=== PATIENT | female | born 1975 | race Caucasian/White ===

== ENCOUNTER → 2019-08-24 14:58 | Outpatient (BNVA) | payer MEDICAID, SELFPAY | PROVIDERS: Family Provider Nurse Practitioner; PCP Nurse Practitioner; Visit Provider Anesthesiology | DX: M47.817 Spondylosis without myelopathy or radiculopathy, lumbosacral region (principal); M79.651 Pain in right thigh; M79.652 Pain in left thigh; G43.709 Chronic migraine without aura, not intractable, without status migrainosus; Z79.891 Long term (current) use of opiate analgesic | CPT/HCPCS: 99214 ==

== ENCOUNTER → 2019-10-18 12:53 | Outpatient (BNVA) | payer MEDICAID, SELFPAY | PROVIDERS: Family Provider Nurse Practitioner; PCP Nurse Practitioner; Visit Provider Nurse Practitioner | DX: G89.29 Other chronic pain (principal); M47.817 Spondylosis without myelopathy or radiculopathy, lumbosacral region; M79.652 Pain in left thigh; Z79.891 Long term (current) use of opiate analgesic | CPT/HCPCS: 99214 ==

== ENCOUNTER → 2020-01-09 14:56 | Outpatient (BNVA) | payer MEDICAID, SELFPAY | PROVIDERS: Family Provider Nurse Practitioner; PCP Nurse Practitioner; Visit Provider Nurse Practitioner | DX: G89.29 Other chronic pain (principal); M47.817 Spondylosis without myelopathy or radiculopathy, lumbosacral region; M54.42 Lumbago with sciatica, left side; M54.9 Dorsalgia, unspecified; Z79.891 Long term (current) use of opiate analgesic | CPT/HCPCS: 99213; 99214 ==

== ENCOUNTER → 2020-03-26 08:07 | Outpatient (BNVA) | payer MEDICAID, SELFPAY | PROVIDERS: Family Provider Nurse Practitioner; PCP Nurse Practitioner; Visit Provider Anesthesiology | DX: G89.29 Other chronic pain (principal); M54.42 Lumbago with sciatica, left side; M47.817 Spondylosis without myelopathy or radiculopathy, lumbosacral region; M54.9 Dorsalgia, unspecified; Z79.891 Long term (current) use of opiate analgesic | CPT/HCPCS: 99213; 99214 ==

== ENCOUNTER → 2020-05-22 13:21 | Outpatient (BNVA) | payer MEDICAID, SELFPAY | PROVIDERS: Family Provider Nurse Practitioner; PCP Nurse Practitioner; Visit Provider Anesthesiology | DX: G89.29 Other chronic pain (principal); M47.817 Spondylosis without myelopathy or radiculopathy, lumbosacral region; M54.9 Dorsalgia, unspecified; Z79.891 Long term (current) use of opiate analgesic | CPT/HCPCS: 99213; 99214 ==

== ENCOUNTER → 2020-07-24 10:43 | Outpatient (BNVA) | payer MEDICAID, SELFPAY | PROVIDERS: Family Provider Nurse Practitioner; PCP Nurse Practitioner; Visit Provider Nurse Practitioner | DX: G89.29 Other chronic pain (principal); M54.42 Lumbago with sciatica, left side; M47.817 Spondylosis without myelopathy or radiculopathy, lumbosacral region; M54.9 Dorsalgia, unspecified; G43.709 Chronic migraine without aura, not intractable, without status migrainosus; Z79.891 Long term (current) use of opiate analgesic | CPT/HCPCS: 99214 ==

== ENCOUNTER → 2020-09-11 13:51 | Outpatient (BNVA) | payer MEDICAID, SELFPAY | PROVIDERS: Family Provider Nurse Practitioner; PCP Nurse Practitioner; Visit Provider Nurse Practitioner | DX: G89.29 Other chronic pain (principal); M47.817 Spondylosis without myelopathy or radiculopathy, lumbosacral region; G43.709 Chronic migraine without aura, not intractable, without status migrainosus; M54.9 Dorsalgia, unspecified; Z79.891 Long term (current) use of opiate analgesic | CPT/HCPCS: 99214 ==

== ENCOUNTER 2020-10-08 17:32 | Outpatient (CLI) | payer MEDICAID, SELFPAY ==
--- NOTE | 2020-10-08 17:30 | MR_ITS ---
WS: [id number] MRI LUMBAR SPINE NONCONTRAST HISTORY: M47.817 - Spondylosis without myelopathy or radiculopathy, lumbosacral region COMPARISON: 12/06/2013 TECHNIQUE: Sagittal and axial multisequence imaging is submitted. Normal lumbar alignment with no compression fractures or marrow edema. Mild disc desiccation at L3-4, L4-5 and L5-S1. No significant narrowing. No fractures or marrow edema . Conus terminates normally at L1-2 disc level. L1-L2: Mild bilateral facet joint arthritis and ligamentum flavum hypertrophy. No disc protrusions or significant stenosis. L2-L3: Mild annular disc bulge with mild ligamentum flavum and facet arthritis. Foramina are being sl ightly narrowed bilaterally. L3-L4: Mild annular disc bulging with a central broad-based protrusion. Asymmetric ligamentum flavum hypertrophy, greatest on the RIGHT. Mild central, bilateral lateral recess and RIGHT foraminal stenos is. Moderate to severe LEFT foraminal stenosis with near complete effacement of fat. L4-L5: Mild annular disc bulging and osteophytic ridging. Mild bilateral facet joint arthritis and li gamentum flavum hypertrophy. Mild central stenosis. Moderate to severe RIGHT foraminal and mild LEFT foraminal stenosis. L5-S1: Mild annular disc bulging with moderate facet and ligamentum flavum hypertrophy. Mild bilatera l foraminal stenosis, LEFT greater than RIGHT. Very mild contact on the LEFT S1 nerve root but no dis placement. Very similar to the prior study. Paravertebral soft tissues are normal. MR/MR lumbar spine wo con* [id number] IMPRESSION: 1. Mild progression of degenerative changes of the lumbar spine and foraminal stenoses since 12/06/2013. 2. Moderate to severe LEFT foraminal stenosis at L3-4 with mild central and bi lateral lateral recess stenosis. 3. Moderate to severe RIGHT foraminal stenosis at L4-5 with mild central steno sis. 4. Mild bilateral foraminal stenosis at L5-S1 with slight contact and no displ acement on the LEFT S1 nerve root.
== END 2020-10-08 17:33 | disposition home or self-care (01) ==
LOC: RADSHAW 17:34
PROVIDERS: PCP Nurse Practitioner; Visit Provider Nurse Practitioner
DX: M47.817 Spondylosis without myelopathy or radiculopathy, lumbosacral region (principal); M48.07 Spinal stenosis, lumbosacral region; M48.061 Spinal stenosis, lumbar region without neurogenic claudication
CPT/HCPCS: 72148

== ENCOUNTER → 2020-10-17 08:25 | Outpatient (BNVA) | payer MEDICAID, SELFPAY | PROVIDERS: PCP Nurse Practitioner; Visit Provider Anesthesiology | DX: G89.29 Other chronic pain (principal); M47.817 Spondylosis without myelopathy or radiculopathy, lumbosacral region; M54.9 Dorsalgia, unspecified; Z79.891 Long term (current) use of opiate analgesic | CPT/HCPCS: 99213 ==

== ENCOUNTER → 2020-12-19 09:55 | Outpatient (BNVA) | payer MEDICAID, SELFPAY | PROVIDERS: PCP Nurse Practitioner; Visit Provider Nurse Practitioner | DX: G89.29 Other chronic pain (principal); M47.817 Spondylosis without myelopathy or radiculopathy, lumbosacral region; M54.9 Dorsalgia, unspecified; G43.709 Chronic migraine without aura, not intractable, without status migrainosus; Z79.891 Long term (current) use of opiate analgesic | CPT/HCPCS: 99213 ==

== ENCOUNTER → 2021-02-18 12:51 | Outpatient (BNVA) | payer MEDICAID, SELFPAY | PROVIDERS: PCP Nurse Practitioner; Visit Provider Nurse Practitioner | DX: G89.29 Other chronic pain (principal); M47.817 Spondylosis without myelopathy or radiculopathy, lumbosacral region; M54.9 Dorsalgia, unspecified; G43.709 Chronic migraine without aura, not intractable, without status migrainosus; E66.01 Morbid (severe) obesity due to excess calories; Z79.891 Long term (current) use of opiate analgesic | CPT/HCPCS: 99214 ==

== ENCOUNTER → 2021-03-19 10:00 | Outpatient (BNVA) | payer MEDICAID, SELFPAY | PROVIDERS: PCP Nurse Practitioner; Visit Provider Nurse Practitioner | DX: G89.29 Other chronic pain (principal); M47.817 Spondylosis without myelopathy or radiculopathy, lumbosacral region; G43.709 Chronic migraine without aura, not intractable, without status migrainosus; E66.01 Morbid (severe) obesity due to excess calories; Z79.891 Long term (current) use of opiate analgesic | CPT/HCPCS: 99214 ==

== ENCOUNTER → 2021-05-02 12:09 | Outpatient (BNVA) | payer MEDICAID, SELFPAY | PROVIDERS: PCP Nurse Practitioner; Visit Provider Anesthesiology Pain Medicine | DX: G89.29 Other chronic pain (principal); M53.3 Sacrococcygeal disorders, not elsewhere classified; Z79.891 Long term (current) use of opiate analgesic | CPT/HCPCS: G0260; J1030; J3490 ==

== ENCOUNTER → 2021-05-21 10:21 | Outpatient (BNVA) | payer MEDICAID, SELFPAY | PROVIDERS: PCP Nurse Practitioner; Visit Provider Anesthesiology | DX: G89.29 Other chronic pain (principal); M47.817 Spondylosis without myelopathy or radiculopathy, lumbosacral region; G43.709 Chronic migraine without aura, not intractable, without status migrainosus; E66.01 Morbid (severe) obesity due to excess calories; I50.32 Chronic diastolic (congestive) heart failure; I11.0 Hypertensive heart disease with heart failure; Z79.891 Long term (current) use of opiate analgesic | CPT/HCPCS: 99213 ==

== ENCOUNTER 2021-06-09 19:18 | Emergency (ER) | payer MEDICAID, SELFPAY ==
--- NOTE | 2021-06-09 19:20 | XRR_ITS ---
PROCEDURE INFORMATION: Exam: XR Chest Exam date and time: 06/09/2021 7:20 PM Age: 45 years old Clinical indication: Pain; Chest pressure; Additional info: Chest pain TECHNIQUE: Imaging protocol: XR of the chest. Views: 1 view. COMPARISON: CR Chest 2 views* [id number] 08/30/2016 11:41 AM FINDINGS: Lungs: Unremarkable. No consolidation. Pleural spaces: Unremarkable. No pleural effusion. No pneumothorax. Heart/Mediastinum: Unremarkable. No cardiomegaly. Bones/joints: No acute abnormality. XR/XR chest 1V portable [id number] IMPRESSION: No acute findings. Radiation Dose CTDIVOL = (mGy): DLP = (mGy-cm)
--- NOTE | 2021-06-09 19:20 | ECG_ITS ---
[facility] Test Date: 2021-06-09 Pat Name: Darwin Stanford Department: Room: Gender: Female Electrical Superintendent: : 1975 Requested By: Randa Calloway Order Number: [id number] Shannan MD: KIN RODRIGUEZ Measurements Intervals [place] Rate: 79 P: 51 WA: 152 QRS: 23 QRSD: 78 T: 45 QT: 362 QTc: 417 Interpretive Statements SINUS RHYTHM Compared to ECG 08/30/2016 13:08:26 T-wave abnormality no longer present Electronically Signed On 06-09-2021 21:54:04 CDT by KIN RODRIGUEZ [id number]
[2021-06-09 19:26] VITALS: BP 152/93; PULSE 83; RESP 22; TEMP 37.6; O2SAT 98; BMI 37.2
== END 2021-06-09 22:38 | disposition left against medical advice (07) ==
PROVIDERS: Emergency Provider Family Medicine; PCP Nurse Practitioner
DX: Z53.21 Procedure and treatment not carried out due to patient leaving prior to being seen by health care provider (principal)
CPT/HCPCS: 71045; 93005

== ENCOUNTER 2021-06-25 10:10 | Outpatient (CLI) | payer MEDICAID, SELFPAY ==
[2021-06-25 10:25] VITALS: BMI 37.2
--- NOTE | 2021-06-25 10:26 | ECG_ITS ---
[facility] Test Date: 2021-06-25 Pat Name: Darwin Stanford Department: Room: Gender: Female Deployment Specialist: Shani Syn : 1975 Requested By: Sushma Dubose Order Number: [id number] Shannan MD: Sushma Dubose M.D. Interpretive Statements NAME OF STUDY: LEXISCAN SESTAMIBI STRESS TEST INDICATION: Chest Pain, PROCEDURE: At the baseline, the EKG revealed normal sinus rhythm with some nonspecific T wave changes in the inferolateral leads. The baseline blood pressure was 150/87 mm Hg with a heart rate of 90 beats/min. Lexiscan was infused over a period of 20 seconds. A total of 0.4 milligrams of Lexiscan was infused. The stress phase was continued for a total of 5 minutes. Heart rate at the end of the stress phase was 101 with a blood pressure 144/82. The EKG at the peak infusion revealed no significant changes. Sestamibi was injected 20 seconds after the Lexiscan infusion. Blood pressure at the end of the recovery phase was 152/82 with a heart rate of 100 per minute. CONCLUSION: 1. No significant EKG changes with the LexiScan infusion 2. No LexiScan induced chest pain or cardiac arrhythmia 3. Normal blood pressure and heart rate response 4. Sestamibi/sestamibi perfusion scan pending; see separate report. Electronically Signed On 06-29-2021 20:47:23 CLIENT SERVICE MANAGER by Sushma Dubose M.D. [id number]
--- NOTE | 2021-06-25 10:26 | NMCV_ITS ---
NM freida perf SPECT r/s* [id number] Darwin Stanford Age: 45 Gender: F : 1975 Exam Date: 06/25/2021 10:26 Ordering Phys: Sushma Dubose MD ([email or web address]) Technologist: RUFUS Richmond Exam Location: [facility] Indications: CHEST PAIN STRESS TEST Please see separate stress test report in [facility] for full findings IMAGE PROTOCOL Rest/Stress 1 Lexiscan Day Radiopharmaceutical Dose (mCi) Administration Site Administered by Rest: Tc-99m 10.5 IV RUFUS Ramos Sestamibi Stress:Tc-99m 33.0 IV RUFUS Ramos Sestamibi Rest: 25-Jun-2021 60 Discovery 630 Stress: 25-Jun-2021 30 Discovery 630 0.4mg Lexiscan. Images obtained in supine and prone position. SPECT RESULTS Technical Quality: Excellent Raw Data Analysis: Normal, Breast attenuation Image Corrections: No attenuation or motion correction applied Summed Stress Score: 0 Summed Rest Score: 0 Summed Difference Score: 0 PERFUSION FINDINGS Fairly uniform myocardial tracer uptake. No significant perfusion abnormalities FUNCTIONAL RESULTS (calculated via Gated SPECT) Stress Image LV EF (%): 78 Stress EDV (mL):74 TID: 1.03 Stress ESV (mL):16 FUNCTIONAL FINDINGS: The segmental wall motion analysis revealed no significant wall motion abnormalities IMPRESSIONS 1. No significant perfusion abnormalities. 2. Normal LV ejection fraction of 78%. 3. LV wall motion analysis revealing no gross wall motion normalities. 4. Normal LV volume. No significant coronary ischemia, based on the above findings Dr Sushma Dubose MD [facility] (Electronically Signed) Final Date: 25 June 2021 21:45 S
[2021-06-25] MEDS: regadenoson 0.4 Mg/5 ml Syringe IVP (12:07)
[2021-06-25 12:27] VITALS: BP 152/82; PULSE 98
== END 2021-06-25 10:11 | disposition home or self-care (01) ==
LOC: CDL 10:12
PROVIDERS: PCP Nurse Practitioner; Visit Provider Internal Medicine Cardiovascular Disease
DX: R07.9 Chest pain, unspecified (principal)
CPT/HCPCS: 78452; 93017; A9500; J2785

== ENCOUNTER → 2021-08-14 09:45 | Outpatient (BNVA) | payer MEDICAID, SELFPAY | PROVIDERS: PCP Nurse Practitioner; Visit Provider Anesthesiology | DX: G89.29 Other chronic pain (principal); M47.817 Spondylosis without myelopathy or radiculopathy, lumbosacral region; G43.709 Chronic migraine without aura, not intractable, without status migrainosus; Z79.891 Long term (current) use of opiate analgesic | CPT/HCPCS: 99214 ==

== ENCOUNTER → 2021-09-19 10:35 | Outpatient (BNVA) | payer MEDICAID, SELFPAY | PROVIDERS: PCP Nurse Practitioner; Visit Provider Anesthesiology | DX: G89.29 Other chronic pain (principal); M47.817 Spondylosis without myelopathy or radiculopathy, lumbosacral region; Z79.891 Long term (current) use of opiate analgesic | CPT/HCPCS: 99213 ==

== ENCOUNTER → 2022-03-16 14:05 | Outpatient (BNVA) | payer MEDICAID, SELFPAY | PROVIDERS: PCP Nurse Practitioner; Visit Provider Internal Medicine Cardiovascular Disease | DX: R07.89 Other chest pain (principal); I11.0 Hypertensive heart disease with heart failure; I50.32 Chronic diastolic (congestive) heart failure; E66.01 Morbid (severe) obesity due to excess calories; Z68.41 Body mass index [BMI] 40.0-44.9, adult; R06.02 Shortness of breath | CPT/HCPCS: 36415; 80048; 83880; 93005; 99214 ==

== ENCOUNTER 2022-03-22 15:02 | Emergency (ER) | payer MEDICAID, SELFPAY ==
[2022-03-22 15:06] VITALS: BP 143/111; PULSE 92; RESP 16; TEMP 36.6; O2SAT 98; BMI 42.3
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
[2022-03-22 15:45] VITALS: RESP 16
[2022-03-22] MEDS: morphine 4 mg/mL SDV 1 mL IVP ×2 (15:45→17:35)
[2022-03-22] MEDS: ondansetron 2 mg/ML SDV 2 mL 4 MG IVP (15:52)
[2022-03-22 15:57] LABS: Basophils % 0.4 %; Eosinophils # 0.1 10^3/uL (0.0-0.8); Eosinophils % 2.5 %; Hematocrit 39.8 % (37.0-47.0); Hemoglobin 12.7 g/dL (11.5-15.3); Lymphocytes # 1.1 10^3/uL (0.8-4.8); Mean Corpuscular HGB Conc 31.9 g/dL (30.0-36.0); Mean Corpuscular Volume 84.7 fl (81-99); Mean Platelet Volume 11.6 fL (7.4-10.4); Monocytes # 0.4 10^3/uL (0.2-0.9); Neutrophils # 3.21 10^3/uL (1.8-7.7); Neutrophils % 65.9 %; Nucleated Red Blood Cells % 0 %; Platelet Count 241 10^3/cmm (130-400); Red Cell Distribution Width 13.9 % (12.1-15.1); White Blood Count 4.9 10^3/uL (4.0-10.0)
[2022-03-22 16:18] LABS: Alanine Aminotransferase 20 U/L (0-33); Albumin Level 4.3 g/dL (3.5-5.2); Alkaline Phosphatase 111 IU/L (35-105); Aspartate Amino Transferase 22 U/L (0-32); Blood Urea Nitrogen 7 mg/dL (6-20); Calcium 9.1 mg/dL (8.5-10.5); Carbon Dioxide 23 mmol/L (22-29); Chloride 102 mmol/L (98-107); Globulin 3.2 g/dL (1.3-4.6); Glomerular Filtration Rate 90.5 mL/min (90-130); Glucose 113 mg/dL (65-115); Osmolality Calculated 287 mOsm/kg (285-295); Sodium 139 mmol/L (136-145); Total Bilirubin 0.2 mg/dL (0.15-1.2); Total Protein 7.5 g/dL (6.6-8.7)
[2022-03-22] MEDS: iohexol 350 mg/mL 100 mL Btl IV (16:27)
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
[2022-03-22 17:35] VITALS: RESP 16
== END 2022-03-22 18:18 | disposition home or self-care (01) ==
PROVIDERS: Emergency Provider Family Medicine; PCP Nurse Practitioner
DX: Z04.1 Encounter for examination and observation following transport accident (principal); I11.0 Hypertensive heart disease with heart failure; I50.9 Heart failure, unspecified; V89.2XXA Person injured in unspecified motor-vehicle accident, traffic, initial encounter
CPT/HCPCS: 70450; 71260; 72125; 73562; 74177; 80053; 85025; 96374; 96375; 96376; 99285; J2270; J2405; Q9967

== ENCOUNTER 2022-04-02 11:54 | Outpatient (CLI) | payer MEDICAID, SELFPAY ==
--- NOTE | 2022-04-02 12:45 | USCV_ITS ---
Abdoulaye Darwin Age: 46 Gender: F : 1975 Exam Date: 04/02/2022 12:37 Ordering Phys: Sushma Dubose MD ([email or web address]) Technologist: SEBASTIÁN Exam Location: [facility] [place] Indication: SOB, CP BP: 143 / 71 HR: 79 Rhythm: Sinus Technical Quality: Difficult MEASUREMENTS (Male / Female) Normal Values 2D ECHO LV Diastolic Diameter PLAX 3.4 cm 4.2 - 5.9 / 3.9 - 5.3 cm LV Systolic Diameter PLAX 1.9 cm IVS Diastolic Thickness 1.3 cm 0.6 - 1.0 / 0.6 - 0.9 cm IVS Systolic Thickness 1.2 cm LVPW Diastolic Thickness 1.1 cm 0.6 - 1.0 / 0.6 - 0.9 cm LVPW Systolic Thickness 1.0 cm LVOT Diameter 2.0 cm LV Ejection Fraction 2D Teich 75.9 % LV Ejection Fraction MOD 2C 56.2 % LV Ejection Fraction 2C AL 55.5 % LA Diameter 3.7 cm RA Width 2.9 cm RA Height 4.6 cm Aorta at Sinotubular Diameter 2.4 cm M-MODE MV E Point Septal Separation 0.6 cm DOPPLER AV Peak Velocity 154.0 cm/s LVOT Peak Velocity 93.0 cm/s AV Area Cont Eq vti 2.2 cm squared AV Area Cont Eq pk 2.0 cm squared MV Peak Velocity 123.0 cm/s MV Area PHT 2.7 cm squared Mitral E to A Ratio 0.8 MV E' Velocity 53.5 cm/s Mitral E to MV E' Ratio 11.1 Mitral E to LV E' Lateral Ratio 8.6 Mitral E to LV E' Septal Ratio 15.7 TR Peak Velocity 242.0 cm/s TR Peak Gradient 23.4 mmHg Right Atrial Pressure 8.0 mmHg Pulmonary Artery Systolic Pressu 31.4 mmHg PV Peak Velocity 116.0 cm/s FINDINGS Left Ventricle Normal left ventricular size and systolic function, EF 60 %. Grade I/IV diastolic dysfunction (abnormal relaxation filling pattern), normal to mildly elevated filling pressures. Right Ventricle The right ventricle is normal in size and function. Right Atrium The right atrium is normal in size. Left Atrium The left atrium is normal in size. Mitral Valve Mild mitral annular calcification. Trace mitral valve regurgitation. Aortic Valve No gross abnormalities noted Tricuspid Valve No gross abnormalities noted Pulmonic Valve No gross abnormalities noted Pericardium Normal pericardium without effusion. Aorta Normal ascending aorta dimension. IVC Normal inferior vena cava. CONCLUSIONS Normal left ventricular size and systolic function, EF 60 %. Grade I/IV diastolic dysfunction (abnormal relaxation filling pattern), normal to mildly elevated filling pressures. Mild mitral annular calcification. Trace mitral valve regurgitation. There is no pericardial effusion. There are no intracardiac masses. Compared to the study from 05/12/2018, there is development of diastolic dysfunction Dr Sushma Dubose MD FAC (Electronically Signed) Final Date: 03 April 2022 11:17 S
== END 2022-04-02 11:55 | disposition home or self-care (01) ==
LOC: RAD 11:55
PROVIDERS: PCP Nurse Practitioner; Visit Provider Internal Medicine Cardiovascular Disease
DX: R06.02 Shortness of breath (principal); R07.9 Chest pain, unspecified
CPT/HCPCS: 93306

== ENCOUNTER → 2022-06-23 11:09 | Outpatient (BNVA) | payer MEDICAID, SELFPAY | PROVIDERS: PCP Nurse Practitioner; Visit Provider Internal Medicine Cardiovascular Disease | DX: I11.0 Hypertensive heart disease with heart failure (principal); I50.32 Chronic diastolic (congestive) heart failure; R00.2 Palpitations; E66.01 Morbid (severe) obesity due to excess calories | CPT/HCPCS: 93242; 99214 ==

== ENCOUNTER 2023-11-13 10:56 | Emergency (ER) | payer MEDICAID, SELFPAY ==
[2023-11-13 11:00] VITALS: BP 142/74; PULSE 87; RESP 16; TEMP 37; O2SAT 97; BMI 46.0
--- NOTE | 2023-11-13 11:09 | ED_ITS ---
HPI - Back Pain/Injury General: Chief Complaint: Back Pain/Injury Stated Complaint: back pain, fall Time Seen by Provider: 11/13/23 11:07 Source: patient Mode of arrival: ambulatory Limitations: no limitations History of Present Illness: Patient is a 47-year-old female with a history of chronic lower back pain here for back pain following a fall yesterday. Patient states she tripped over a rug and landed on her bottom. She complains of lower back as well as tailbone pain . She does not complain of any saddle anesthesia or bowel or bladder dysfunction. Denies radicular pains into her lower extremities. Denies abdominal pain. States she is not having any pain in her hips. MD elicited complaint: back pain, back injury and fall Pertinent past history: prior back pain and recent trauma (fall yesterday) Onset (ago): day(s) (yesterday) Timing: constant Severity: severe Similar Symptoms Previously: Yes Location: lumbar spine and sacrum Radiation: none Exacerbating factors: movement and walking Relieving factors: none Context: fall Associated symptoms: Reports difficulty walking (secondary to back pain) Work related injury: No Review of Systems Musc: Reports: back pain; Denies: neck pain, extremity pain, extremity swelling, joint pain or joint swelling Neuro: Reports: difficulty walking (secondary to back pain); Denies: numbness in extremities, weakness in extremities or sensory changes PFSH ED PFSH: Medical History Benign essential HTN Atypical chest pain Morbid obesity CHF (congestive heart failure) Hypertension Chronic back pain Opioid contract exists Chronic migraine without aura, not intractable, without status migrainosus Chronic prescription opiate use Lumbosacral spondylosis Surgical History H/O bariatric surgery History of cholecystectomy H/O lateral meniscus repair of left knee Family History Mother Anesthesia complication CAD (coronary artery disease) Chronic kidney disease (CKD) Diabetes Lung disease Grandfather CAD (coronary artery disease) Cancer Dementia Stroke Father Cancer Grandmother Dementia Diabetes Lung disease Family/Other Diabetes Suicide Other Hypertension Denies family history of Clotting disorder Bleeding disorder Social History (Reviewed 11/13/23 @ 11:21 by FAMILIA Austin Smoking and tobacco/nicotine status: never used tobacco/nicotine Second hand smoke exposure: No Alcohol intake: never Substance/Drug Use: never Physical Exam Const: COMMON NORMALS: patient oriented x3, no limitations, alert and well nourished GENERAL APPEARANCE: appears older than stated age NUTRITIONAL APPEARANCE: obese morbidly obese (BMI is 46.1) ORIENTATION/CONSCIOUSNESS: Yes awake, Yes oriented to person, Yes oriented to place and Yes oriented to time Back/Pelvis: THORACIC SPINE/UPPER BACK: Yes normal to inspection, Yes thoracic ROM normal, No thoracic spinal tenderness, No paraspinal muscle tenderness and No paraspinal muscle spasm LUMBAR SPINE/LOWER BACK: Yes ROM limited, Yes lumbar spinal tenderness, No paraspinal muscle tenderness, No paraspinal muscle spasm, No mass present and Yes straight leg raise negative bilaterally PELVIS: Yes buttocks normal and No sciatic notch tenderness SACRUM: tenderness COCCYX: Coccyx tenderness present Extremity: COMMON NORMALS: normal to inspection, full ROM and capillary refill normal GENERAL: Yes normal exam except as noted Neuro: COMMON NORMALS: patient oriented x3, moves all extremities, no focal motor deficits and no sensory deficits noted SENSORIUM/ORIENTATION: Yes alert, Yes oriented to person, Yes oriented to place and Yes oriented to time GAIT: Yes Unable to assess gait MOTOR EXAM: 5/5 motor strength present throughout DEEP TENDON REFLEXES: Right patellar reflex intensity grade: 2+ and Left patellar reflex intensity grade: 2+ Skin: TRAUMA: no lacerations or abrasions Course Vital Signs: Vital signs: Vital Signs Temperature 98.6 F 11/13/23 11:00 Pulse Rate 87 11/13/23 11:00 Respiratory Rate 18 11/13/23 11:51 Blood Pressure 171/107 11/13/23 11:25 Pulse Oximetry 98 11/13/23 11:25 Oxygen Delivery Me thod Room Air 11/13/23 11:25 MDM - Back Pain/Injury Medical Decision Making XRs negative. No neurologic deficits. Patient is cleared from an ED standpoint and given return precautions. She can follow up with PCP in 1-2 weeks for continued pain. Medical Records I reviewed the patient's medical records. Labs Radiology Impressions Lumbar Spine X-Ray 11/13/23 11:17 IMPRESSION: 1. No acute findings. 2. Minimal arthritic changes as detailed above Sacrum and Coccyx X-Ray 11/13/23 11:17 IMPRESSION: No acute findings. All radiology interpretation(s) finalized by discharge Discharge Plan Discharge Patient Disposition: Home Clinical Impression: Contusion of lower back Qualifiers: Encounter type: initial encounter Qualified Code(s): S30.0XXA - Contusion of lower back and pelvis, initial encounter Condition: Stable Prescriptions: No Action medroxyprogesterone [Depo-Provera] 150 mg/mL suspension 150 mg IM .EVERY 3 MONTHS trazodone 100 mg tablet 200 mg PO BEDTIME diphenhydramine HCl [Benadryl] 25 mg capsule 25 mg PO DAILY PRN (Reason: Allergy Symptoms) ferrous gluconate 324 mg (38 mg iron) tablet 324 mg PO DAILY venlafaxine [Effexor XR] 75 mg capsule,extended release 24hr 75 mg PO DAILY tizanidine 4 mg tablet 4 mg PO QID PRN (Reason: muscle spasticity) 30 Days Qty: 120 1RF oxycodone-acetaminophen 10-325 mg tablet 1 tab PO QID PRN (Reason: Pain) fenofibrate nanocrystallized 48 mg tablet 48 mg PO DAILY magnesium L-lactate [Magtab] 84 mg tablet extended release 84 mg PO BID Qty: 60 5RF nitroglycerin 0.4 mg tablet, sublingual See Rx Instructions .ROUTE .COMPLEX Qty: 100 1RF Dose Instruction: PLACE 1 TABLET UNDER THE TONGUE EVERY 5 MINUTES NEEDED FOR CHEST PAIN . IF NO RELIEF AFTER 2 DOSES, CALL 911. MAX OF 3 TABLET PER EPISODE Rx Instructions: PLACE 1 TABLET UNDER THE TONGUE EVERY 5 MINUTES NEEDED FOR CHEST PAIN . IF NO RELIEF AFTER 2 DOSES, CALL 911. MAX OF 3 TABLET PER EPISODE Depakote 250 mg Tablet,Delayed Release (Dr/Ec) 250 mg PO DAILY Effexor XR 150 mg Capsule,Extended Release 24hr 150 mg PO DAILY levothyroxine 25 mcg Tablet 25 mcg PO DAILY carvedilol 25 mg tablet 25 mg PO BID isosorbide mononitrate 30 mg tablet extended release 24 hr 30 mg PO DAILY amlodipine 5 mg tablet 5 mg PO DAILY Discharge Orders: Discharge ED (Routine); Ordered 11/13/23 Ordered By: Randa Calloway Referrals: Mckenzie Rosenbaum CHEMICAL PATHOLOGIST [Primary Care Provider] - Patient Instructions: Coccyx Injury, Contusion in Adults (ED) Coding Level of Care Code ED Vascular Technologist Sonographer for Yumi Saavedra
--- NOTE | 2023-11-13 11:17 | XRR_ITS ---
PROCEDURE INFORMATION: Exam: XR Lumbosacral Spine Exam date and time: 11/13/2023 11:22 AM Age: 47 years old Clinical indication: Lumbago and lumbago with sciatica; Patient HX: Sacrum/coccyx pain post fall; Chronic low back pain with left sciatica TECHNIQUE: Imaging protocol: Radiologic exam of the lumbosacral spine. Views: 2 or 3 views. COMPARISON: CR (PELVIS, ) 11/13/2023 11:22 AM FINDINGS: Bones/joints: Very mild anterior vertebral body spurring involves the L4 and L5 vertebral bodies. I see no fracture or subluxation. No other arthritic changes. Soft tissues: Unremarkable. XR/XR lumbar spine 2-3V* [id number] IMPRESSION: 1. No acute findings. 2. Minimal arthritic changes as detailed above
--- NOTE | 2023-11-13 11:17 | XRR_ITS ---
PROCEDURE INFORMATION: Exam: XR Sacrum and Coccyx, 2 or More Views Exam date and time: 11/13/2023 11:22 AM Age: 47 years old Clinical indication: Lumbago; Sciatica symptoms not specified; Patient HX: Sacrum/coccyx pain post fall; Chronic low back pain with left sciatica TECHNIQUE: Imaging protocol: XR of the sacrum and coccyx, 2 or more views. COMPARISON: CR XR lumbar spine 2-3V* [id number] 11/13/2023 11:22 AM FINDINGS: Bones/joints: Normal. No acute fracture. Soft tissues: Normal. XR/XR sacrum coccyx min 2V [id number] IMPRESSION: No acute findings.
[2023-11-13 11:25] VITALS: BP 171/107; RESP 20; O2SAT 98
[2023-11-13 11:51] VITALS: RESP 18
[2023-11-13] MEDS: ondansetron 2 mg/ML SDV 2 mL 4 MG IM (11:51)
[2023-11-13] MEDS: morphine 4 mg/mL SDV 1 mL IM (11:51)
[2023-11-13 12:51] VITALS: BP 179/93; PULSE 79; RESP 16; TEMP 37; O2SAT 97
== END 2023-11-13 12:51 | disposition home or self-care (01) ==
PROVIDERS: Emergency Provider Physician Assistant; PCP Nurse Practitioner
DX: S30.0XXA Contusion of lower back and pelvis, initial encounter (principal); I11.0 Hypertensive heart disease with heart failure; I50.9 Heart failure, unspecified; W18.09XA Striking against other object with subsequent fall, initial encounter
CPT/HCPCS: 72100; 72220; 96372; 99284; J2270; J2405

== ENCOUNTER 2024-02-02 20:00 | Outpatient (CLI) | payer MEDICAID, SELFPAY | END 2024-02-02 20:01 | disposition home or self-care (01) | LOC: SLEEP 02-03 04:10 | PROVIDERS: PCP Nurse Practitioner Family; Visit Provider Nurse Practitioner Family | DX: G47.33 Obstructive sleep apnea (adult) (pediatric) (principal); F51.04 Psychophysiologic insomnia; G43.011 Migraine without aura, intractable, with status migrainosus | CPT/HCPCS: 95810; 99203 ==

== ENCOUNTER 2024-02-23 06:00 | Outpatient (CLI) | payer MEDICAID, SELFPAY | END 2024-02-23 06:01 | disposition home or self-care (01) | PROVIDERS: PCP Nurse Practitioner Family; Visit Provider Internal Medicine Cardiovascular Disease | DX: I10 Essential (primary) hypertension (principal); R00.2 Palpitations; Z79.891 Long term (current) use of opiate analgesic; E66.01 Morbid (severe) obesity due to excess calories; G43.709 Chronic migraine without aura, not intractable, without status migrainosus; Z87.891 Personal history of nicotine dependence; Z68.42 Body mass index [BMI] 45.0-49.9, adult | CPT/HCPCS: 99214 ==

== ENCOUNTER 2024-02-28 14:09 | Emergency (ER) | payer MEDICAID, SELFPAY ==
[2024-02-28 14:13] VITALS: BP 165/109; PULSE 66; TEMP 36.9; O2SAT 100; BMI 46.9
--- NOTE | 2024-02-28 14:35 | CTR_ITS ---
PROCEDURE INFORMATION: Exam: CT Abdomen And Pelvis With Contrast Exam date and time: 02/28/2024 4:15 PM Age: 48 years old Clinical indication: Abdominal pain; Localized; Upper; Prior surgery; Surgery date: 6+ months; Surgery type: Gastric sleeve, gbse; Additional info: Abdominal pain, vomiting x 2 wks; HX bariatric surgery TECHNIQUE: Imaging protocol: Computed tomography of the abdomen and pelvis with contrast. Radiation optimization: All CT scans at this facility use at least one of these dose optimization techniques: automated exposure control; mA and/or kV adjustment per patient size (includes targeted exams where dose is matched to clinical indication); or iterative reconstruction. Contrast material: OMNI 350; Contrast volume: 100 ml; Contrast route: INTRAVENOUS (IV); COMPARISON: CT chest abdpel w/*[id number] 03/22/2022 4:13 PM RADIATION DOSE METRICS: Total DLP (mGy-cm): 1387 FINDINGS: Lungs: Lung bases are clear. No pleural effusion. Liver: Normal. No mass. Gallbladder and biliary ducts: The gallbladder has been resected. Pancreas: Normal. No ductal dilation. Spleen: Normal. No splenomegaly. Adrenal glands: Normal. No mass. Kidneys and ureters: Normal. No hydronephrosis. Stomach and bowel: There is evidence of previous gastric surgery. Appendix: No evidence of appendicitis. Intraperitoneal space: Unremarkable. No free air. No significant fluid collection. Vasculature: Unremarkable. No abdominal aortic aneurysm. Lymph nodes: Unremarkable. No enlarged lymph nodes. Urinary bladder: Unremarkable as visualized. Reproductive: Unremarkable as visualized. Bones/joints: Unremarkable. No acute fracture. Soft tissues: Unremarkable. CT/CT abdomen pelvis w con* [id number] IMPRESSION: No acute findings.
--- NOTE | 2024-02-28 14:37 | XR_ITS ---
WS: [id number] PORTABLE CHEST HISTORY: reported weight gain/increased fluid COMPARISON: 06/09/2021 Lungs are clear and well expanded. No pleural effusion or pneumothorax. Cardiac size: Normal. Mediastinum/Aorta: Normal mediastinum. No osseous abnormality seen. XR/XR chest 1V portable [id number] IMPRESSION: Unremarkable portable chest.
[2024-02-28 14:39] VITALS: BP 189/88; PULSE 77; O2SAT 99
--- NOTE | 2024-02-28 14:39 | W.ED.NAVMDI ---
HPI - Nausea/Vomiting/Diarrhea General: Chief complaint: Nausea/Vomiting/Diarrhea Stated complaint: vomiting for two weeks Time Seen by Provider: 02/28/24 14:15 Source: patient Mode of arrival: ambulatory Limitations: no limitations History of Present Illness: Patient is a 48-year-old female with an extensive past medical history here for vomiting over the past 2 weeks not being able to hold anything down . She also reports weight gain of almost 20 to 30 pounds over the past 2 weeks. She states she has a history of congestive heart failure although she just met with cardiology last week who questioned this as she has never had any abnormal imaging to support this diagnosis. Patient states she is still having bowel movements and still passing flatulence. She does report a previous bariatric surgery 2006 or 2010 . She is not running fevers. She states she has not been able to hold down her home medications secondary to the vomiting. MD elicited complaint: nausea, vomiting and abdominal pain Pertinent past history: other (bariatric surgery; cholecystectomy) Onset (ago): week(s) Associated nausea: Yes Associated abdominal pain: Yes Location of pain: Epigastric Pain consistency: intermittent Severity: moderate Exacerbating factors: eating Relieving factors: none Associated symtoms: Reports no associated symptoms, nausea and other (weight gain, vomiting, abdominal pain); Denies chest pain, dizziness, dysuria, fatigue, headache(s) or malaise Review of Systems Const: Denies: fever(s), chills, body aches, fatigue or malaise Card: Denies: chest pain Resp: Denies: dyspnea GI: Reports: abdominal pain, nausea and vomiting; Denies: hematemesis, diarrhea, constipation, GI cramping, change in bowel habits, pain on defecation, hematochezia or melena : Denies: flank pain, difficulty voiding, dysuria, urinary frequency, urinary urgency or urinary hesitancy Musc: Denies: neck pain, back pain, extremity pain or joint pain Skin/Breast: Denies: rash Neuro: Denies: headache(s), numbness in extremities, weakness in extremities, sensory changes or dizziness PFS ED PFSH: Medical History Weight gain Benign essential HTN Atypical chest pain Morbid obesity CHF (congestive heart failure) Hypertension Chronic back pain Opioid contract exists Chronic migraine without aura, not intractable, without status migrainosus Chronic prescription opiate use Lumbosacral spondylosis Surgical History H/O bariatric surgery History of cholecystectomy H/O lateral meniscus repair of left knee Family History Mother Anesthesia complication CAD (coronary artery disease) Chronic kidney disease (CKD) Diabetes Lung disease Grandfather CAD (coronary artery disease) Cancer Dementia Stroke Father Cancer Grandmother Dementia Diabetes Lung disease Family/Other Diabetes Suicide Other Hypertension Denies family history of Clotting disorder Bleeding disorder Social History Smoking and tobacco/nicotine status: former use of tobacco/nicotine Second hand smoke exposure: No Alcohol intake: never Substance/Drug Use: never Physical Exam Const: COMMON NORMALS: no acute distress, patient oriented x3, no limitations, alert and well nourished GENERAL APPEARANCE: cooperative NUTRITIONAL APPEARANCE: obese morbidly obese (BMI of 46.9) ORIENTATION/CONSCIOUSNESS: Yes awake, Yes oriented to person, Yes oriented to place and Yes oriented to time Eye: COMMON NORMALS: no scleral icterus Neck/C-Spine: COMMON NORMALS: no JVD Resp: COMMON NORMALS: normal respiratory effort and clear to auscultation bilaterally AUSCULTATION: clear to auscultation bilaterally Cardio: COMMON NORMALS: no JVD, regular rate and regular rhythm RATE: regular rate RHYTHM: regular rhythm GI: COMMON NORMALS: Normal to inspection, nondistended, normoactive bowel sounds present, Soft to palpation, No hepatosplenomegaly present and no masses INSPECTION: Yes normal to inspection AUSCULTATION: Yes normoactive bowel sounds PALPATION: Yes Soft to palpation, Yes Tenderness to palpation present (GI) (RUQ, epigastric), No Guarding due to palpation present (GI), No Rigid due to palpation and Yes No hepatosplenomegaly present : COMMON NORMALS: Yes no CVA tenderness BLADDER/KIDNEY EXAM: Yes no CVA tenderness Back/Pelvis: COMMON NORMALS: no CVA tenderness Extremity: COMMON NORMALS: no clubbing, cyanosis or edema, no calf tenderness and no pedal edema GENERAL: Yes normal exam except as noted Neuro: GENE COMA SCALE: document GCS findings Gene coma scale eye opening: Spontaneous [place] coma scale verbal response: Orientated [place] coma scale motor response: Obey commands Gene coma scale total score: 15 COMMON NORMALS: patient oriented x3 SENSORIUM/ORIENTATION: Yes alert, Yes oriented to person, Yes oriented to place and Yes oriented to time Skin: COMMON NORMALS: no rashes or lesions noted GENERAL SKIN EXAM: no rashes or lesions noted Course Vital Signs: Vital signs: Vital Signs Temperature 98.5 F 02/28/24 14:13 Pulse Rate 86 02/28/24 16:00 Blood Pressure 127/80 02/28/24 16:00 Pulse Oximetry 99 02/28/24 16:00 Oxygen Delivery Me thod Room Air 02/28/24 16:00 MDM - Nausea/Vomiting/Diarrhea Medical Decision Making Patient here for vomiting over the past 2 weeks and weight gain. She has not had any vomiting while here. Blood work overall is nonactionable. Her UA is suspicious for UTI with 2+ blood, 2+ leuks, 15-[address] Will culture and place her on antibiotics. CT scan is unremarkable. CXR does not show evidence of fluid overload. Patient stable to follow-up with her primary care provider. Medical Records I reviewed the patient's medical records. Lab Data I reviewed the patient's lab results. 02/28/24 14:37 02/28/24 14:37 Radiology Impressions Abdomen/Pelvis CT 02/28/24 14:35 IMPRESSION: No acute findings. Chest X-Ray 02/28/24 14:37 IMPRESSION: Unremarkable portable chest. Laboratory Results WBC 5.19 10^3/uL (3.29-11.43) 02/28/24 14:37 RBC 4.20 10^6/uL (3.85-5.65) 02/28/24 14:37 Hgb 12.50 g/dL (11.27-16.99) 02/28/24 14:37 Hct 37.5 % (36-47) 02/28/24 14:37 MCV 89.3 fl (85-98) 02/28/24 14:37 MCH 29.8 pg (27-33) 02/28/24 14:37 MCHC 33.3 g/dL (30-55) 02/28/24 14:37 RDW 15.6 % (12.1-15.1) H 02/28/24 14:37 Plt Count 218 10^3/cmm (157-399) 02/28/24 14:37 MPV 11.0 fL (7.4-10.4) H 02/28/24 14:37 Neut % (Auto) 69.7 % 02/28/24 14:37 Lymph % (Auto) 19.5 % 02/28/24 14:37 [place] % (Auto) 8.3 % 02/28/24 14:37 Eos % (Auto) 1.9 % 02/28/24 14:37 Baso % (Auto) 0.2 % 02/28/24 14:37 Neut # (Auto) 3.62 10^3/uL (1.8-7.7) 02/28/24 14:37 Lymph # (Auto) 1.0 10^3/uL (0.8-4.8) 02/28/24 14:37 [place] # (Auto) 0.4 10^3/uL (0.2-0.9) 02/28/24 14:37 Eos # (Auto) 0.1 10^3/uL (0.0-0.8) 02/28/24 14:37 Baso # (Auto) 0.0 10^3/uL (0.0-0.1) 02/28/24 14:37 Nucleated RBC % (auto) 0 % 02/28/24 14:37 Nucleated RBCs # 0.0 /100WBC 02/28/24 14:37 Sodium 138 mmol/L (136-145) 02/28/24 14:37 Potassium 4.0 mmol/L (3.5-5.1) 02/28/24 14:37 Chloride 105 mmol/L (98-107) 02/28/24 14:37 Carbon Dioxide 22 mmol/L (22-29) 02/28/24 14:37 Anion Gap 15.0 (5-19) 02/28/24 14:37 BUN 10 mg/dL (6-20) 02/28/24 14:37 Creatinine 0.7 mg/dL (0.5-0.9) 02/28/24 14:37 GFR Calculation 89.7 mL/min (90-130) L 02/28/24 14:37 Glucose 102 mg/dL (65-115) 02/28/24 14:37 Calculated Osmolality 285 mOsm/kg (285-295) 02/28/24 14:37 Calcium 8.5 mg/dL (8.5-10.5) 02/28/24 14:37 Total Bilirubin 0.3 mg/dL (0.15-1.2) 02/28/24 14:37 AST 16 U/L (0-32) 02/28/24 14:37 ALT 19 U/L (0-33) 02/28/24 14:37 Alkaline Phosphatase 96 U/L (35-105) 02/28/24 14:37 NT-Pro-B Natriuret Pep 275 pg/mL (0-125) H 02/28/24 14:37 Total Protein 7.1 g/dL (6.6-8.7) 02/28/24 14:37 Albumin 4.1 g/dL (3.5-5.2) 02/28/24 14:37 Globulin 3.0 g/dL (1.3-4.6) 02/28/24 14:37 Lipase 8 U/L (13-60) L 02/28/24 14:37 HCG, Qual Negative (Negative) 02/28/24 15:44 Urine Color Yellow (Yellow) 02/28/24 15:44 Urine Appearance Slightly cloudy (CLEAR) 02/28/24 15:44 Urine pH 9 (5-7) H 02/28/24 15:44 Ur Specific [place] 1.010 (1.005-1.030) 02/28/24 15:44 Urine Protein Neg (Negative) 02/28/24 15:44 Urine Glucose (UA) Norm (Normal) 02/28/24 15:44 Urine Ketones Negative (Negative) 02/28/24 15:44 Urine Blood 2+ (Negative) H 02/28/24 15:44 Urine Nitrate Negative (Negative) 02/28/24 15:44 Urine Bilirubin Neg (Negative) 02/28/24 15:44 Urine Urobilinogen 1 mg/dL (Negative) H 02/28/24 15:44 Ur Leukocyte Esterase 2+ (Negative) H 02/28/24 15:44 Urine RBC 0-4 /hpf (0-2) H 02/28/24 15:44 Urine WBC 15-25 /hpf (0-5) H 02/28/24 15:44 Ur Squamous Epith Cells 0-4 /hpf (0-5) H 02/28/24 15:44 Amorphous Sediment Not Reportable 02/28/24 15:44 Urine Bacteria 1+ /hpf (NONE) H 02/28/24 15:44 All radiology interpretation(s) finalized by discharge Discharge Plan Discharge Patient Disposition: Home Clinical Impression: Vomiting Qualifiers: Vomiting type: unspecified Nausea presence: with nausea Qualified Code(s): R11.2 - Nausea with vomiting, unspecified Acute cystitis Qualifiers: Hematuria presence: with hematuria Qualified Code(s): N30.01 - Acute cystitis with hematuria Condition: Stable Prescriptions: New ondansetron 4 mg tablet,disintegrating 4 mg PO Q8H PRN (Reason: nausea and vomiting) Qty: 14 0RF Macrobid 100 mg capsule 100 mg PO BID 7 Days Qty: 14 0RF Rx Instructions: must administer with a meal/food No Action medroxyprogesterone [Depo-Provera] 150 mg/mL suspension 150 mg IM .EVERY 3 MONTHS trazodone 100 mg tablet 200 mg PO BEDTIME diphenhydramine HCl [Benadryl] 25 mg capsule 25 mg PO DAILY PRN (Reason: Allergy Symptoms) ferrous gluconate 324 mg (38 mg iron) tablet 324 mg PO DAILY venlafaxine [Effexor XR] 75 mg capsule,extended release 24hr 75 mg PO DAILY tizanidine 4 mg tablet 4 mg PO QID PRN (Reason: muscle spasticity) 30 Days Qty: 120 1RF oxycodone-acetaminophen 10-325 mg tablet 1 tab PO QID PRN (Reason: Pain) rizatriptan 10 mg tablet See Rx Instructions PO .COMPLEX Rx Instructions: take 1 tab at onset of headache; if no relief may repeat 1 tab after at least 2 hrs; max = 3 tabs/24 hr PO levothyroxine 25 mcg tablet 25 mcg PO DAILY Emgality Pen 120 mg/mL pen injector 120 mg SUBCUT ONCE Qty: 1 5RF fenofibrate nanocrystallized 48 mg tablet 48 mg PO DAILY magnesium oxide 400 mg magnesium tablet 400 mg PO DAILY isosorbide mononitrate 30 mg tablet extended release 24 hr 30 mg PO DAILY Qty: 100 3RF carvedilol 25 mg tablet See Rx Instructions .ROUTE .COMPLEX Qty: 60 3RF Dose Instruction: TAKE ONE TABLET BY MOUTH TWICE DAILY Rx Instructions: TAKE ONE TABLET BY MOUTH TWICE DAILY nitroglycerin 0.4 mg tablet, sublingual See Rx Instructions .ROUTE .COMPLEX Qty: 25 3RF Dose Instruction: PLACE 1 TABLET UNDER THE TONGUE EVERY 5 MINUTES NEEDED FOR CHEST PAIN . IF NO RELIEF AFTER 2 DOSES, CALL 911. MAX OF 3 TABLET PER EPISODE Rx Instructions: PLACE 1 TABLET UNDER THE TONGUE EVERY 5 MINUTES NEEDED FOR CHEST PAIN . IF NO RELIEF AFTER 2 DOSES, CALL 911. MAX OF 3 TABLET PER EPISODE Emgality Pen 120 mg/mL pen injector 240 mg SUBCUT ONCE Qty: 2 0RF Rx Instructions: Loading dose Depakote 250 mg Tablet,Delayed Release (Dr/Ec) 250 mg PO DAILY Effexor XR 150 mg Capsule,Extended Release 24hr 150 mg PO DAILY amlodipine 5 mg tablet 5 mg PO DAILY Discharge Orders: Discharge ED (Routine); Ordered 02/28/24 Ordered By: Randa Calloway Referrals: Michelle Palmer, TRANSCRIBING MACHINE MECHANIC [Primary Care Provider] - Activity Restrictions/Additional Instructions: As we discussed I would like you to follow-up with your primary care provider. You may return to the emergency department for worsening abdominal pain, vomiting, inability to pass stool or flatulence/gas, fevers, flank pain, generally feeling worse or unwell, or any other concerns you may have. Hope you begin to feel better soon. Coding Level of Care Code ED Telecommunications Network Planner for Yumi Saavedra
[2024-02-28] MEDS: ondansetron 2 mg/ML SDV 2 mL 4 MG IVP (14:54)
[2024-02-28 14:56] LABS: Basophils % 0.2 %; Eosinophils # 0.1 10^3/uL (0.0-0.8); Eosinophils % 1.9 %; Hematocrit 37.5 % (36-47); Lymphocytes % 19.5 %; Mean Corpuscular HGB Conc 33.3 g/dL (30-55); Mean Corpuscular Hemoglobin 29.8 pg (27-33); Mean Corpuscular Volume 89.3 fl (85-98); Monocytes # 0.4 10^3/uL (0.2-0.9); Monocytes % 8.3 %; Neutrophils # 3.62 10^3/uL (1.8-7.7); Neutrophils % 69.7 %; Nucleated Red Blood Cells % 0 %; Platelet Count 218 10^3/cmm (157-399); Red Cell Distribution Width 15.6 % (12.1-15.1); White Blood Count 5.19 10^3/uL (3.29-11.43)
[2024-02-28] MEDS: enalaprilat 2.5 mg/2 mL SDV 1.25 MG IVP (14:58)
[2024-02-28 15:04] VITALS: BP 133/93; PULSE 77; O2SAT 100
[2024-02-28 15:30] VITALS: BP 141/85; PULSE 75; O2SAT 99
[2024-02-28 15:41] LABS: Alanine Aminotransferase 19 U/L (0-33); Albumin Level 4.1 g/dL (3.5-5.2); Alkaline Phosphatase 96 U/L (35-105); Aspartate Amino Transferase 16 U/L (0-32); Blood Urea Nitrogen 10 mg/dL (6-20); Calcium 8.5 mg/dL (8.5-10.5); Carbon Dioxide 22 mmol/L (22-29); Chloride 105 mmol/L (98-107); Creatinine Clr Calc Pharmacy 124.7246; Glomerular Filtration Rate 89.7 mL/min (90-130); Glucose 102 mg/dL (65-115); Lipase 8 U/L (13-60); NT Pro B Type Natriuretic Pept 275 pg/mL (0-125); Osmolality Calculated 285 mOsm/kg (285-295); Sodium 138 mmol/L (136-145); Total Bilirubin 0.3 mg/dL (0.15-1.2); Total Protein 7.1 g/dL (6.6-8.7)
[2024-02-28 16:00] VITALS: BP 127/80; PULSE 86; O2SAT 99
[2024-02-28 16:02] LABS: HCG Qualitative Urine. Negative (Negative)
[2024-02-28 16:03] LABS: Urine Appearance Slightly Cloudy (CLEAR); Urine Color Yellow (Yellow)
[2024-02-28 16:04] LABS: Add Urine Microscopic? YES; Bacteria Urine 1+ /hpf; Bilirubin Urine Neg (Negative); Blood Urine 2+ (Negative); Glucose Urine UA Norm (Normal); Ketones Urine Negative (Negative); Leukocyte Esterase Urine 2+ (Negative); Nitrate Urine Negative (Negative); Protein Urine Neg (Negative); RBC Urine 0-4 /hpf (0-2); Squamous Epithelial Cell Urine 0-4 /hpf (0-5); Urobilinogen Urine 1 mg/dL (Negative); WBC Urine 15-25 /hpf (0-5); pH Urine 9 (5-7)
[2024-02-28 16:05] LABS: Add Urine Culture? Yes
[2024-02-28] MEDS: iohexol 350 mg/mL 500 mL Btl (per mL) IV (16:19)
== END 2024-02-28 17:03 | disposition home or self-care (01) ==
PROVIDERS: Emergency Medicine; Emergency Provider Physician Assistant; PCP Nurse Practitioner Family
DX: R11.2 Nausea with vomiting, unspecified (principal); N30.01 Acute cystitis with hematuria; Z87.891 Personal history of nicotine dependence; I11.0 Hypertensive heart disease with heart failure; I50.9 Heart failure, unspecified
CPT/HCPCS: 36415; 71045; 74177; 80053; 81001; 81025; 83690; 83880; 85025; 87086; 87186; 96374; 96375; 99285; J2405; Q9967

== ENCOUNTER 2024-02-29 14:57 | Outpatient (CLI) | payer MEDICAID, SELFPAY ==
[2024-02-29] MEDS: gadobenate dimeglumine 20 mL vial IV (15:56)
--- NOTE | 2024-02-29 16:00 | MR_ITS ---
WS: [id number] MRI HEAD WITH CONTRAST TECHNIQUE: Sagittal T1, T2 axial, T2 axial FLAIR, axial susceptibility weighted imaging, axial diffus ion weighted images, and coronal T2 images were obtained. Pre and post-T1 axial and post T1 coronal i mages. ADC and FSPGR images. CLINICAL INFORMATION: R00.2 - Palpitations COMPARISON: MRI 12/12/2010 CT head 03/22/2022 FINDINGS: No evidence of restricted diffusion to suggest acute ischemia. Ventricular system and basal cisterns are patent. Symmetric increase T2 signal abnormality in the periatrial white matter similar to 2011. This is slightly more pronounced today but otherwise unchanged. No new intracranial signal abnormalit ies. Normal posterior fossa. Normal vascular flow voids at the skull base. No extra-axial fluid collection s. No evidence of mass or mass effect. Paranasal sinuses and mastoid air cells are well aerated. Mild mucosal thickening in the ethmoid air cells and frontal sinuses. Normal posterior nasopharynx. No hemosiderin on the susceptibly weighted images. Normal optic chiasm and pituitary infundibulum. Te mporal lobes and hippocampal formations are normal in appearance. No abnormal gadolinium enhancement. Normal visualized dural venous sinuses. Incidental slightly low-lying cerebellar tonsils. MR/MR head wo/w con [id number] IMPRESSION: 1. No evidence of restricted diffusion to suggest acute ischemia. 2. Symmetric T2 signal abnormality in the periatrial white matter slightly mor e prominent today but otherwise unchanged. This is nonspecific but can be seen with prior infectious/inflammatory, demyelinating, toxic/metabolic, and ischemi c etiologies. No abnormal gadolinium enhancement. 3. Temporal lobes and hippocampal formations are normal in appearance. 4. No abnormal gadolinium enhancement. 5. No hemosiderin on susceptibility-weighted images. 6. No other suspicious findings.
== END 2024-02-29 14:58 | disposition home or self-care (01) ==
LOC: RAD 14:58
PROVIDERS: PCP Nurse Practitioner Family; Visit Provider Psychiatry & Neurology Neurology
DX: R00.2 Palpitations (principal); G43.709 Chronic migraine without aura, not intractable, without status migrainosus; M47.817 Spondylosis without myelopathy or radiculopathy, lumbosacral region; J34.89 Other specified disorders of nose and nasal sinuses
CPT/HCPCS: 70553; A9577

== ENCOUNTER → 2024-04-27 08:00 | Outpatient (BNVA) | payer MEDICAID, SELFPAY | PROVIDERS: PCP Nurse Practitioner Family; Visit Provider Psychiatry & Neurology Neurology | DX: R56.9 Unspecified convulsions (principal) | CPT/HCPCS: 95816 ==

== ENCOUNTER → 2024-05-24 15:29 | Outpatient (BNVA) | payer MEDICAID, SELFPAY | PROVIDERS: PCP Nurse Practitioner Family; Visit Provider Internal Medicine Cardiovascular Disease | DX: I49.8 Other specified cardiac arrhythmias (principal); R07.9 Chest pain, unspecified; R06.02 Shortness of breath | CPT/HCPCS: 93005; 99215 ==

== ENCOUNTER 2024-06-16 09:12 | Outpatient (CLI) | payer MEDICAID, SELFPAY ==
[2024-06-16 09:24] VITALS: BMI 42.5
--- NOTE | 2024-06-16 09:24 | ECG_ITS ---
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 Interpretive Statements Lung unchanged pre/post procedure; Intraprocedure shortess of breath; Symptoms resoled by discharge PROCEDURE: At the baseline, the EKG revealed normal sinus rhythm with some nonspecific T wave changes.. The baseline heart was 67 bpm with a blood pressue of 103/80 mm of Hg Lexiscan was infused over a period of 20 seconds. A total of 0.4 milligrams of Lexiscan was infused. The stress phase was continued for a total of 5 minutes. Heart rate at the end of the stress phase was 88 bpm with a blood pressure 110/73 mm of Hg. The EKG at the peak infusion revealed no significant changes. Sestamibi was injected 20 seconds after the Lexiscan infusion. Heart rate at the end of the recovery phase was 80 bpm and the blood pressure was not recorded CONCLUSION: 1. No significant EKG changes with the LexiScan infusion 2. No LexiScan induced chest pain or cardiac arrhythmia 3. Normal blood pressure and heart rate response 4. Sestamibi/sestamibi perfusion scan pending; see separate report. Electronically Signed On 06-17-2024 10:55:29 [employer] TESTING by Sushma Dubose M.D. [email or web address]
--- NOTE | 2024-06-16 09:24 | NMCV_ITS ---
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 Supine position only as patient was unable to lay prone. SPECT RESULTS Technical Quality: Good Raw Data Analysis: Breast attenuation Image Corrections: No attenuation or motion correction applied Summed Stress Score: 1 Summed Rest Score: 0 Summed Difference Score: 1 PERFUSION FINDINGS A small area of slightly decreased tracer uptake was noted in the mid inferior segment. Complete reversibility was noted with the in this region. FUNCTIONAL RESULTS (calculated via Gated SPECT) Stress Image LV EF (%): 72 Stress EDV (mL):76 TID: 0.89 Stress ESV (mL):21 FUNCTIONAL FINDINGS: Segmental wall motion analysis revealing no gross wall motion abnormalities IMPRESSIONS 1. Myocardial perfusion imaging revealing a small area of reversible defect in the mid inferior region suggestive of ischemia in the distribution of the right coronary artery(the summed ischemic score and difference score were 1) 2. Normal LV ejection fraction of 72%. 3. LV wall motion analysis revealing no gross wall motion abnormalities. 4. Normal LV volume Compared to the study from 06/25/2021, the ischemia appears to be new Dr Sushma Dubose MD [facility] (Electronically Signed) Final Date: 16 June 2024 19:57 S
[2024-06-16] MEDS: regadenoson 0.4 Mg/5 ml Syringe IVP (10:45)
[2024-06-16 11:41] VITALS: BP 107/67; PULSE 84
== END 2024-06-16 09:13 | disposition home or self-care (01) ==
PROVIDERS: PCP Nurse Practitioner Family; Visit Provider Internal Medicine Cardiovascular Disease
DX: Z98.61 Coronary angioplasty status (principal); R06.02 Shortness of breath; R94.39 Abnormal result of other cardiovascular function study
CPT/HCPCS: 36415; 78452; 93017; 96374; A9500; J2785

== ENCOUNTER 2024-06-16 09:39 | Outpatient (CLI) | payer MEDICAID, SELFPAY ==
[2024-06-16 10:34] LABS: Anion Gap 14.2 (5-19); Blood Urea Nitrogen 12 mg/dL (6-20); Calcium 8.3 mg/dL (8.5-10.5); Carbon Dioxide 23 mmol/L (22-29); Chloride 100 mmol/L (98-107); Glomerular Filtration Rate 89.7 mL/min (90-130); Glucose 118 mg/dL (65-115); NT Pro B Type Natriuretic Pept 68 pg/mL (0-125); Osmolality Calculated 277 mOsm/kg (285-295); Potassium 4.2 mmol/L (3.5-5.1); Sodium 133 mmol/L (136-145)
== END 2024-06-16 09:40 | disposition home or self-care (01) ==
LOC: LAB 09:40
PROVIDERS: PCP Nurse Practitioner Family; Visit Provider Internal Medicine Cardiovascular Disease
DX: R06.02 Shortness of breath (principal)
CPT/HCPCS: 80048; 83880

== ENCOUNTER 2024-07-26 09:22 | Outpatient (CLI) | payer MEDICAID, SELFPAY ==
--- NOTE | 2024-07-26 09:15 | USCV_ITS ---
Darwin Stanford Age: 48 Gender: F : 1975 Exam Date: 07/26/2024 09:36 Ordering Phys: Sushma Dubose MD ([email or web address]) Technologist: [place] [facility] [place]: BP: 140 / 84 HR: 62 Rhythm: Sinus Technical Quality: Adequate MEASUREMENTS (Male / Female) Normal Values 2D ECHO LVOT Diameter 2.0 cm LV Ejection Fraction MOD 4C 68.7 % LV Ejection Fraction MOD 2C 62.5 % LV Ejection Fraction 2C AL 62.4 % LA Diameter 4.7 cm RA Systolic Volume 4C AL 31.6 ml RA Systolic Volume 4C MOD 31.1 ml LA Sys Volume AL 52.2 cm cubed LA Sys Volume Index AL 21.9 cm cubed/m squared Aorta at Sinotubular Diameter 2.0 cm M-MODE LA Ao Ratio MM 1.2 AV Cusp Separation MM 1.9 cm DOPPLER AV Peak Velocity 140.0 cm/s LVOT Peak Velocity 120.0 cm/s AV Area Cont Eq vti 2.9 cm squared AV Area Cont Eq pk 2.8 cm squared MV Peak Velocity 135.0 cm/s MV Area PHT 2.8 cm squared Mitral E to A Ratio 1.3 TV Peak Velocity 201.5 cm/s TR Peak Velocity 242.5 cm/s TR Peak Gradient 23.5 mmHg TR Mean Velocity 170.0 cm/s TR Mean Gradient 13.4 mmHg TR Velocity Time Integral 72.0 cm TV Peak E Velocity 72.0 cm/s PV Peak Velocity 93.0 cm/s FINDINGS Left Ventricle Normal left ventricular size and systolic function, EF 62%.no regional wall motion abnormalities. Right Ventricle The right ventricle is normal in size and function. Right Atrium The right atrium is normal in size. Left Atrium The left atrium is normal in size. Mitral Valve Mild mitral annular calcification. Trace mitral valve regurgitation. Aortic Valve No gross abnormalities noted . Tricuspid Valve No gross abnormalities noted . Pulmonic Valve No gross abnormalities noted . Pericardium Normal pericardium without effusion. Aorta Normal ascending aorta dimension. IVC The inferior vena cava appears normal. CONCLUSIONS Normal left ventricular size and systolic function, EF 62%.no regional wall motion abnormalities. Mild mitral annular calcification. Trace mitral valve regurgitation. No intracardiac masses There is no pericardial effusion. Compared to study from 04/02/2022, there may not be a significant change Dr Sushma Dubose MD FAC (Electronically Signed) Final Date: 03 August 2024 17:03 S
== END 2024-07-26 09:23 | disposition home or self-care (01) ==
LOC: RAD 09:22
PROVIDERS: PCP Nurse Practitioner Family; Visit Provider Internal Medicine Cardiovascular Disease
DX: I50.32 Chronic diastolic (congestive) heart failure (principal); R94.39 Abnormal result of other cardiovascular function study
CPT/HCPCS: 93306

== ENCOUNTER → 2024-11-24 10:53 | Outpatient (BNVA) | payer MEDICAID, SELFPAY | PROVIDERS: PCP Nurse Practitioner Family; Visit Provider Nurse Practitioner Family | DX: I11.0 Hypertensive heart disease with heart failure (principal); I50.32 Chronic diastolic (congestive) heart failure; R00.2 Palpitations; R60.0 Localized edema | CPT/HCPCS: 99214 ==

== ENCOUNTER 2025-01-16 15:41 | Emergency (ER) | payer MEDICAID, SELFPAY ==
[2025-01-16 15:52] VITALS: BP 114/80; PULSE 84; RESP 17; TEMP 36.4; O2SAT 97; BMI 46.4
--- NOTE | 2025-01-16 16:05 | USR_ITS ---
PROCEDURE INFORMATION: Exam: US Pelvis, Complete, Non-Obstetric Exam date and time: 01/16/2025 4:24 PM Age: 49 years old Clinical indication: Abdominal pain; Lower abdomen; Additional info: Bleeding TECHNIQUE: Imaging protocol: Transabdominal pelvic nonobstetric ultrasound. Complete exam. Real time ultrasound with image documentation. COMPARISON: CT abdomen pelvis w con* [id number] 02/28/2024 4:15 PM FINDINGS: Uterus: Uterus is normal. Endometrial stripe measures 0.5 cm in thickness. There is a small amount of fluid near the internal cervical os. Right ovary/adnexa: The right ovary could not be visualized. No definite adnexal mass. Left ovary/adnexa: The left ovary could not be visualized. No definite adnexal mass. Intraperitoneal space: No intraperitoneal fluid. US/US pelvic complete* [id number] IMPRESSION: 1. Technically difficult study. Ovaries were not visualized. 2. Endometrial stripe thickness measures 0.5 cm. This would be at the upper limits of normal in a postmenopausal female.
[2025-01-16] MEDS: sodium chloride 0.9% 1,000 ML 999 ML IV (16:17)
[2025-01-16 16:30] LABS: Basophils % 0.5 %; Eosinophils # 0.2 10^3/uL (0.0-0.8); Eosinophils % 2.5 %; Hematocrit 38.6 % (36-47); Lymphocytes # 1.4 10^3/uL (0.8-4.8); Lymphocytes % 23.2 %; Mean Corpuscular HGB Conc 34.7 g/dL (30-55); Mean Corpuscular Hemoglobin 29.6 pg (27-33); Mean Corpuscular Volume 85.4 fl (85-98); Mean Platelet Volume 10.5 fL (7.4-10.4); Monocytes # 0.5 10^3/uL (0.2-0.9); Monocytes % 8.8 %; Neutrophils # 3.91 10^3/uL (1.8-7.7); Neutrophils % 64.7 %; Nucleated Red Blood Cells % 0 %; Platelet Count 191 10^3/cmm (157-399); Red Blood Count 4.52 10^6/uL (3.85-5.65); Red Cell Distribution Width 14.5 % (12.1-15.1); White Blood Count 6.04 10^3/uL (3.29-11.43)
--- NOTE | 2025-01-16 16:35 | W.ED.FEMALGU ---
HPI - Female Genitourinary General: Chief complaint: Vaginal Bleeding Stated complaint: felt a pop in her abd, heavy vaginal bleeding Time Seen by Provider: 01/16/25 16:05 History of Present Illness: Chief complaint is vaginal bleeding. Patient states earlier today she felt a pop sensation in her left lower quadrant and then started having vaginal bleeding and passing clots. Related Data Home Medications ?Medication ?Instructions ?Recorded ?Confirmed medroxyprogesterone 150 mg/mL 150 mg IM .EVERY 3 MONTHS 08/24/19 11/24/24 intramuscular suspension (Depo-Provera) ferrous gluconate 324 mg (38 mg 324 mg PO DAILY 12/19/20 11/24/24 iron) tablet diphenhydramine HCl 25 mg capsule 25 mg PO DAILY PRN Allergy Symptoms 02/13/21 11/24/24 (Benadryl) trazodone 100 mg tablet 200 mg PO BEDTIME 02/13/21 11/24/24 oxycodone-acetaminophen 10 mg-325 1 tab PO QID PRN Pain 03/16/22 11/24/24 mg tablet venlafaxine 75 mg capsule,extended 75 mg PO DAILY 03/16/22 11/24/24 release 24 hr (Effexor XR) fenofibrate nanocrystallized 48 mg 48 mg PO DAILY 06/23/22 11/24/24 tablet divalproex 250 mg tablet,delayed 250 mg PO DAILY 11/13/23 11/24/24 release (Depakote) venlafaxine 150 mg 150 mg PO DAILY 11/13/23 11/24/24 capsule,extended release 24 hr (Effexor XR) levothyroxine 25 mcg tablet 25 mcg PO DAILY 02/02/24 11/24/24 rizatriptan 10 mg tablet See Rx Instructions PO .COMPLEX 02/02/24 11/24/24 magnesium oxide 400 mg PO DAILY 02/23/24 11/24/24 hydroxyzine HCl 25 mg tablet 25 mg PO .prn PRN 05/24/24 11/24/24 Previous Rx's ?Medication ?Instructions ?Recorded tizanidine 4 mg tablet 4 mg PO QID PRN muscle spasticity 09/19/21 30 days #120 tabs isosorbide mononitrate 30 mg 30 mg PO DAILY #100 tabs 12/02/23 tablet,extended release 24 hr nitroglycerin 0.4 mg sublingual See Rx Instructions .Route 09/11/24 tablet .COMPLEX #25 tabs galcanezumab-gnlm 120 mg/mL 120 mg SUBCUT ONCE #1 mL 10/02/24 subcutaneous pen injector (Emgality Pen) amlodipine 5 mg tablet 5 mg PO DAILY #90 tabs 11/20/24 carvedilol 25 mg tablet See Rx Instructions .Route 11/20/24 .COMPLEX #60 tabs furosemide 20 mg tablet 10 mg (1/2 x 20 mg) PO DAILY PRN 11/24/24 edema #30 tabs Allergies Allergy/AdvReac Type Severity Reaction Status Date / Time hydrochlorothiazide Allergy Severe syncope Verified 11/24/24 10:58 labetalol Allergy BURNING IN Verified 11/24/24 10:58 STOMACH diphenhydramine (From AdvReac UNKNOWN - Verified 11/24/24 10:58 Benadryl) SEE COMMENT NSAIDS (Non-Steroidal AdvReac BARIATRIC Verified 11/24/24 10:58 Anti-Inflamma SURGERY Penicillins AdvReac UNKNOWN Verified 11/24/24 10:58 PFSH ED PFSH: Medical History Weight gain Benign essential HTN Atypical chest pain Morbid obesity CHF (congestive heart failure) Hypertension Chronic back pain Opioid contract exists Chronic migraine without aura, not intractable, without status migrainosus Chronic prescription opiate use Lumbosacral spondylosis Surgical History H/O bariatric surgery History of cholecystectomy H/O lateral meniscus repair of left knee Family History Mother Anesthesia complication CAD (coronary artery disease) Chronic kidney disease (CKD) Diabetes Lung disease Grandfather CAD (coronary artery disease) Cancer Dementia Stroke Father Cancer Grandmother Dementia Diabetes Lung disease Family/Other Diabetes Suicide Other Hypertension Denies family history of Clotting disorder Bleeding disorder Social History Smoking and tobacco/nicotine status: former use of tobacco/nicotine Second hand smoke exposure: No Alcohol intake: never Substance/Drug Use: never Physical Exam Narrative: EXAM NARRATIVE: Patient is alert appears anxious mild distress. Neck is supple. Skin is warm pink and dry. Conjunctiva is normal. Heart regular rhythm. Lung sounds are clear. Extremities warm well-perfused. No calf tenderness or pitting edema. No rash to exposed areas. Speech is clear. Neck is supple. Patient has pain in her back with laying flat. Patient has some mild left lower quadrant tenderness. No guarding or rebound. No palpable mass. No right lower quadrant or upper abdominal tenderness. Course Vital Signs: Vital signs: Vital Signs Temperature 97.5 F L 01/16/25 15:52 Pulse Rate 72 01/16/25 18:49 Respiratory Rate 16 01/16/25 18:49 Blood Pressure 127/80 01/16/25 18:49 Pulse Oximetry 100 01/16/25 18:49 Oxygen Delivery Me thod Room Air 01/16/25 18:49 MDM - Female Medical Decision Making Patient presents with complaint of vaginal bleeding. She states she felt a popping sensation in her left lower quadrant and then started having vaginal bleeding and passing clots. She states she is not on a blood thinner. She states that she has very heavy periods and so she has been on the Depo shot for a long time however she has not renewed it the most recent time because she was tired of being on so many medications. She has a history congestive heart failure and has to take a lot of medicine. She states she is breathing fine and no chest pain or shortness of breath headache vomiting diarrhea. No black or bloody stools. No new leg pain or swelling. She states that she was completely fine until this occurred. She has not had any dysuria. She states she is not sexually active and no possibility of . Patient has some mild left lower quadrant tenderness. Symptoms were sudden onset. Not suggestive of GI cause with the associated vaginal bleeding. Diverticulitis or appendicitis or other GI cause would be unlikely with associated bleeding. Ruptured ovarian cyst, ectopic, torsion, dysfunctional uterine bleeding, cancer, extremely broad differential. CBC, CMP beta-hCG ordered. CBC shows normal white count. Hemoglobin is over 13. Platelets are within normal limits. I ordered a pelvic ultrasound. I ordered 1 L normal saline IV fluid bolus. I ordered Toradol 15 mg IV for pain per patient request. Patient states that she will get some intermittent cramping pain only when she is passing clots but otherwise no pain in between. Patient test is negative. Patient was not significantly anemic. White count was normal. Electrolytes did not show significant acute abnormality. Pelvic ultrasound was very limited. No definite acute process. Advised patient however cannot see the ovaries to exclude torsion or ovarian cyst. Patient still having some pain. She states she is normally on oxycodone at home but she has been out of it. She would like an oxycodone before she goes home. I ordered 10 mg oxycodone for pain. I discussed doing a CT to evaluate further and advised limits of ultrasound. I advised potential loss of the ovary if she had ovarian torsion and potential need for surgery. Patient decided she did not want to do the CT and she would like to go home. Advised her to come back if she has worsening progressive symptoms and advised limits of ED evaluation and close follow-up. Advised signs of concerning bleeding or symptoms of blood loss or infection or worsening to watch and return for. Patient capable and informed and requesting continued outpatient management. Lab Data 01/16/25 16:21 01/16/25 16:21 Radiology Impressions Pelvis Ultrasound 01/16/25 16:05 IMPRESSION: 1. Technically difficult study. Ovaries were not visualized. 2. Endometrial stripe thickness measures 0.5 cm. This would be at the upper limits of normal in a postmenopausal female. Laboratory Results WBC 6.04 10^3/uL (3.29-11.43) 01/16/25 16:21 RBC 4.52 10^6/uL (3.85-5.65) 01/16/25 16:21 Hgb 13.40 g/dL (11.27-16.99) 01/16/25 16:21 Hct 38.6 % (36-47) 01/16/25 16:21 MCV 85.4 fl (85-98) 01/16/25 16:21 MCH 29.6 pg (27-33) 01/16/25 16:21 MCHC 34.7 g/dL (30-55) 01/16/25 16:21 RDW 14.5 % (12.1-15.1) 01/16/25 16:21 Plt Count 191 10^3/cmm (157-399) 01/16/25 16:21 MPV 10.5 fL (7.4-10.4) H 01/16/25 16:21 Neut % (Auto) 64.7 % 01/16/25 16:21 Lymph % (Auto) 23.2 % 01/16/25 16:21 Trigg % (Auto) 8.8 % 01/16/25 16:21 Eos % (Auto) 2.5 % 01/16/25 16:21 Baso % (Auto) 0.5 % 01/16/25 16:21 Neut # (Auto) 3.91 10^3/uL (1.8-7.7) 01/16/25 16:21 Lymph # (Auto) 1.4 10^3/uL (0.8-4.8) 01/16/25 16:21 Trigg # (Auto) 0.5 10^3/uL (0.2-0.9) 01/16/25 16:21 Eos # (Auto) 0.2 10^3/uL (0.0-0.8) 01/16/25 16:21 Baso # (Auto) 0.0 10^3/uL (0.0-0.1) 01/16/25 16:21 Nucleated RBC % (auto) 0 % 01/16/25 16:21 Nucleated RBCs # 0.0 /100WBC 01/16/25 16:21 Sodium 139 mmol/L (136-145) 01/16/25 16:21 Potassium 4.3 mmol/L (3.5-5.1) 01/16/25 16:21 Chloride 105 mmol/L (98-107) 01/16/25 16:21 Carbon Dioxide 21 mmol/L (22-29) L 01/16/25 16:21 Anion Gap 17.3 (5-19) 01/16/25 16:21 BUN 8 mg/dL (6-20) 01/16/25 16:21 Creatinine 0.5 mg/dL (0.5-0.9) 01/16/25 16:21 GFR Calculation 131.7 mL/min (90-130) H 01/16/25 16:21 Glucose 99 mg/dL (65-115) 01/16/25 16:21 Calculated Osmolality 286 mOsm/kg (285-295) 01/16/25 16:21 Calcium 9.1 mg/dL (8.5-10.5) 01/16/25 16:21 Total Bilirubin 0.2 mg/dL (0.15-1.2) 01/16/25 16:21 AST 21 U/L (0-32) 01/16/25 16:21 ALT 20 U/L (0-33) 01/16/25 16:21 Alkaline Phosphatase 116 U/L (35-105) H 01/16/25 16:21 Total Protein 7.2 g/dL (6.6-8.7) 01/16/25 16:21 Albumin 4.2 g/dL (3.5-5.2) 01/16/25 16:21 Globulin 3.0 g/dL (1.3-4.6) 01/16/25 16:21 Ser , Semi-Qnt < 1.00 mIU/mL 01/16/25 16:21 Urine Color Yellow (Yellow) 01/16/25 17:18 Urine Appearance Clear (CLEAR) 01/16/25 17:18 Urine pH 6.5 (5-7) 01/16/25 17:18 Ur Specific Cornish 1.024 (1.005-1.030) 01/16/25 17:18 Urine Protein Negative (Negative) 01/16/25 17:18 Urine Glucose (UA) Negative (Normal) 01/16/25 17:18 Urine Ketones Trace (Negative) 01/16/25 17:18 Urine Blood 3+ (Negative) A 01/16/25 17:18 Urine Nitrate Negative (Negative) 01/16/25 17:18 Urine Bilirubin Negative (Negative) 01/16/25 17:18 Urine Urobilinogen 1.0 mg/dL (Negative) 01/16/25 17:18 Ur Leukocyte Esterase Negative (Negative) 01/16/25 17:18 Urine RBC >100 /hpf (0-2) H 01/16/25 17:18 Urine WBC 0-5 /hpf (0-5) 01/16/25 17:18 Ur Squamous Epith Cells 0-5 /hpf (0-5) 01/16/25 17:18 Amorphous Sediment Not Reportable 01/16/25 17:18 Urine Bacteria None seen /hpf (NONE) 01/16/25 17:18 Hyaline Casts 0-4 /lpf H 01/16/25 17:18 All radiology interpretation(s) finalized by discharge Discharge Plan Discharge Patient Disposition: Home Clinical Impression: Left lower quadrant abdominal pain Condition: Stable Prescriptions: No Action medroxyprogesterone [Depo-Provera] 150 mg/mL suspension 150 mg IM .EVERY 3 MONTHS trazodone 100 mg tablet 200 mg PO BEDTIME diphenhydramine HCl [Benadryl] 25 mg capsule 25 mg PO DAILY PRN (Reason: Allergy Symptoms) ferrous gluconate 324 mg (38 mg iron) tablet 324 mg PO DAILY venlafaxine [Effexor XR] 75 mg capsule,extended release 24hr 75 mg PO DAILY tizanidine 4 mg tablet 4 mg PO QID PRN (Reason: muscle spasticity) 30 Days Qty: 120 1RF oxycodone-acetaminophen 10-325 mg tablet 1 tab PO QID PRN (Reason: Pain) rizatriptan 10 mg tablet See Rx Instructions PO .COMPLEX Rx Instructions: take 1 tab at onset of headache; if no relief may repeat 1 tab after at least 2 hrs; max = 3 tabs/24 hr PO levothyroxine 25 mcg tablet 25 mcg PO DAILY hydroxyzine HCl 25 mg tablet 25 mg PO .prn PRN fenofibrate nanocrystallized 48 mg tablet 48 mg PO DAILY magnesium oxide 400 mg magnesium tablet 400 mg PO DAILY furosemide 20 mg tablet 10 mg PO DAILY PRN (Reason: edema) Qty: 30 3RF isosorbide mononitrate 30 mg tablet extended release 24 hr 30 mg PO DAILY Qty: 100 3RF nitroglycerin 0.4 mg tablet, sublingual See Rx Instructions .ROUTE .COMPLEX Qty: 25 3RF Dose Instruction: PLACE ONE TABLET UNDER THE TONGUE EVERY 5 MINUTES NEEDED FOR CHEST PAIN . IF NO RELIEF AFTER 2 DOSES, CALL 911. MAX OF 3 TABLET PER EPISODE Rx Instructions: PLACE ONE TABLET UNDER THE TONGUE EVERY 5 MINUTES NEEDED FOR CHEST PAIN . IF NO RELIEF AFTER 2 DOSES, CALL 911. MAX OF 3 TABLET PER EPISODE Emgality Pen 120 mg/mL pen injector 120 mg SUBCUT ONCE Qty: 1 5RF carvedilol 25 mg tablet See Rx Instructions .ROUTE .COMPLEX Qty: 60 3RF Dose Instruction: TAKE ONE TABLET BY MOUTH TWICE DAILY Rx Instructions: TAKE ONE TABLET BY MOUTH TWICE DAILY amlodipine 5 mg tablet 5 mg PO DAILY Qty: 90 3RF Depakote 250 mg Tablet,Delayed Release (Dr/Ec) 250 mg PO DAILY Effexor XR 150 mg Capsule,Extended Release 24hr 150 mg PO DAILY Discharge Orders: Discharge ED (Routine); Ordered 01/16/25 Ordered By: Brandon Ortiz Referrals: Michelle Palmer NP [Primary Care Provider, Unknown] Patient Instructions: Abdominal Pain (ED), Opioid Safety, Pain Management Activity Restrictions/Additional Instructions: Please come back if excessive bleeding, worsening pain, fever, vomiting, weakness, getting worse instead of better, any concerns. Please follow-up on your test results with your doctor. Call your doctor for follow-up in the next 2 to 5 days. Print Language: Kiswahili Coding Level of Care Code ED Lan Analyst for Yumi Saavedra
[2025-01-16 16:55] LABS: HCG Quantitative < 1.00 mIU/mL
[2025-01-16 17:06] LABS: Alanine Aminotransferase 20 U/L (0-33); Albumin Level 4.2 g/dL (3.5-5.2); Alkaline Phosphatase 116 U/L (35-105); Anion Gap 17.3 (5-19); Aspartate Amino Transferase 21 U/L (0-32); Blood Urea Nitrogen 8 mg/dL (6-20); Calcium 9.1 mg/dL (8.5-10.5); Carbon Dioxide 21 mmol/L (22-29); Chloride 105 mmol/L (98-107); Creatinine Clr Calc Pharmacy 171.5543; Glomerular Filtration Rate 131.7 mL/min (90-130); Glucose 99 mg/dL (65-115); Osmolality Calculated 286 mOsm/kg (285-295); Potassium 4.3 mmol/L (3.5-5.1); Sodium 139 mmol/L (136-145); Total Bilirubin 0.2 mg/dL (0.15-1.2); Total Protein 7.2 g/dL (6.6-8.7)
[2025-01-16] MEDS: ketorolac 30 mg/mL INJ 15 MG IVP (17:16)
[2025-01-16 17:25] LABS: Bilirubin Urine Negative (Negative); Blood Urine 3+ (Negative); Glucose Urine UA Negative (Normal); Ketones Urine Trace (Negative); Leukocyte Esterase Urine Negative (Negative); Nitrate Urine Negative (Negative); Protein Urine Negative (Negative); Specific Gravity, Urine 1.024 (1.005-1.030); Urine Appearance Clear (CLEAR); Urine Color Yellow (Yellow); pH Urine 6.5 (5-7)
[2025-01-16 17:32] LABS: Add Urine Microscopic? YES; Bacteria Urine None Seen /hpf; Hyaline Casts Urine 0-4 /lpf; RBC Urine >100 /hpf (0-2); Squamous Epithelial Cell Urine 0-5 /hpf (0-5); WBC Urine 0-5 /hpf (0-5)
[2025-01-16 17:45] LABS: Add Urine Culture? Yes
[2025-01-16 18:48] VITALS: RESP 18
[2025-01-16] MEDS: oxyCODONE-APAP 10-325 mg Tablet 1 TAB PO (18:48)
[2025-01-16 18:49] VITALS: BP 127/80; PULSE 72; RESP 16; O2SAT 100
[2025-01-16 19:20] VITALS: BP 129/87; PULSE 60; RESP 16; O2SAT 100
== END 2025-01-16 19:21 | disposition home or self-care (01) ==
PROVIDERS: Emergency Provider Emergency Medicine; PCP Nurse Practitioner Family
DX: R10.32 Left lower quadrant pain (principal); N93.9 Abnormal uterine and vaginal bleeding, unspecified; I11.0 Hypertensive heart disease with heart failure; E50.9 Vitamin A deficiency, unspecified; E66.01 Morbid (severe) obesity due to excess calories; Z68.42 Body mass index [BMI] 45.0-49.9, adult; Z87.891 Personal history of nicotine dependence; Z79.899 Other long term (current) drug therapy; Z79.890 Hormone replacement therapy
CPT/HCPCS: 76856; 80053; 81001; 84702; 85025; 87086; 96361; 96374; 99284; J1885; J7030; J9999